=== PATIENT | male | born 1960 | race Caucasian/White ===

== ENCOUNTER 2020-12-17 09:41 | Inpatient (IN) ==
[2020-12-17] MEDS ORDERED: ceFAZolin 2 GM in DEXTROSE 5% IN WATER 50 ML IV SCH (11:00)
[2020-12-17 11:52] LABS: Amphetamine Screen,Urine Suspect positive; Barbiturate Screen,Urine None detected; Benzodiazepines Screen,Urine None detected; Cannabinoid Screen,Urine Suspect Positive; Cocaine Screen,Urine None detected; Opiate Screen,Urine Suspect Positive; Oxycodone, Urine Screen None detected; Phencyclidine Screen,Urine None detected
--- NOTE | 2020-12-17 13:36 | XRay Report ---
INDICATION: pre-op TECHNIQUE: AP portable upright chest x-ray COMPARISON: None FINDINGS: Lungs:Linear density at both lung bases consistent with atelectasis or scarring. Mid and upper lungs are negative. Heart, vascular:No significant cardiomegaly. Pulmonary vascularity is normal. No pulmonary edema or pulmonary congestion Mediastinum, saeid:No mediastinal widening. No hilar mass Pleura:No pleural fluid. No pleural-based mass or calcification Skeletal:Negative. IMPRESSION: 1. Mild bibasilar atelectasis or scarring 2. Otherwise negative AP chest x-ray Interpreted and Authenticated by: Dontae Gresham 12/17/20
[2020-12-17] MEDS ORDERED: VANCOMYCIN 1,500 MG in 0.9 % SODIUM CHLORIDE 500 ML IV SCH (14:30)
[2020-12-17] MEDS ORDERED: PHENYLEPHRINE 10 MG/ML VIAL ONE (14:36)
[2020-12-17] MEDS ORDERED: fentaNYL 100 MCG/2 ML VIAL IV ONE (14:36)
[2020-12-17] MEDS ORDERED: LIDOCAINE HCL/PF 100 MG/5 ML SYRINGE IV ONE (14:36)
[2020-12-17] MEDS ORDERED: KETAMINE 100 MG/ML ML ONE (14:36)
[2020-12-17] MEDS ORDERED: GLYCOPYRROLATE 0.2 MG/ML VIAL IV ONE (14:36)
[2020-12-17] MEDS ORDERED: DEXAMETHASONE 10 MG/ML VIAL ONE (14:36)
[2020-12-17] MEDS ORDERED: PROPOFOL 200 MG/20 ML VIAL IV ONE (14:36)
[2020-12-17] MEDS ORDERED: ROPIVACAINE HCL/PF 30 ML VIAL IJ ONE (14:36)
[2020-12-17] MEDS ORDERED: ONDANSETRON 4 MG/2 ML VIAL ONE (14:36)
[2020-12-17] MEDS ORDERED: HYDROmorphone 1 MG/ML SYRINGE ONE (14:36)
[2020-12-17] MEDS ORDERED: MIDAZOLAM 5 MG/5 ML VIAL ONE (14:36)
[2020-12-17] MEDS ORDERED: ONDANSETRON 4 MG/2 ML VIAL IV PRN ×2 (14:46→16:26)
[2020-12-17] MEDS ORDERED: morphine 4 MG/ML VIAL IV PRN (14:46)
[2020-12-17] MEDS ORDERED: ONDANSETRON 4 MG ODT TABLET SL PRN ×2 (14:46→16:26)
--- NOTE | 2020-12-17 14:46 | Brief Operative Note ---
Brief Operative Note Date of procedure: 12/17/20 Pre-op diagnosis: Right septic wrist Post-op diagnosis: same Procedure: R wrist arthrotomy, and irrigation and debridement Grafts/Implants: No Anesthesia: GETA Findings: Purulent infection in wrist joint itself Surgeon: Devante Smith Estimated blood loss (cc): 50 Specimens Removed/Pathology: other (Culture sent to pathology) Condition: stable Disposition: PACU
--- NOTE | 2020-12-17 14:50 | Discharge Plan ---
Discharge Plan Patient/Caregiver Discharge Instructions Activity: non-weight bearing Diet: Regular Diet Activity Restrictions/Additional Instructions: Keep wrist immobilized until follow up Prescriptions: New oxycodone-acetaminophen 5-325 mg Tablet 1 - 2 tab PO Q4HP PRN (Reason: Per Pain Protocol) Qty: 50 RF: 0 Continued salmeterol 50 mcg/dose blister with device 1 inh INHALATION BID Qty: 1 RF: 1 gabapentin 300 mg capsule 300 mg PO TID Qty: 90 RF: 5 bupropion HCl 300 mg tablet extended release 24 hr 300 mg PO QAM Qty: 90 RF: 1 meloxicam 15 mg tablet 15 mg PO QDAY Qty: 30 RF: 2 methocarbamol 750 mg tablet 750 mg PO TID Qty: 90 RF: 1 cyclobenzaprine 10 MG tablet 10 mg PO TID Qty: 30 RF: 0 sulfamethoxazole-trimethoprim [Bactrim DS] 800-160 mg tablet 1 tab PO BID Qty: 20 RF: 0 Follow Up Plan Follow up with: Devante Smith MD [Physician] - 01/01/21 3:40 pm Patient Disposition: Home, Self-Care Discharge Orders: Discharge Order (Routine); Ordered 12/17/20 Ordered By: Devante Smith
[2020-12-17] MEDS ORDERED: METOPROLOL TARTRATE 5 MG/5 ML VIAL IV PRN (15:34)
[2020-12-17] MEDS ORDERED: FLUMAZENIL 0.1 MG/ML ML IV PRN (15:34)
[2020-12-17] MEDS ORDERED: METHOCARBAMOL 1,000 MG/10 ML VIAL IV PRN (15:34)
[2020-12-17] MEDS ORDERED: ACETAMINOPHEN 1,000 MG/100 ML BAG IV ONE (15:34)
[2020-12-17] MEDS ORDERED: fentaNYL 100 MCG/2 ML VIAL IV PRN (15:34)
[2020-12-17] MEDS ORDERED: LABETALOL 5 MG/ML ML IV PRN (15:34)
[2020-12-17] MEDS ORDERED: IPRATROPIUM/ALBUTEROL 3 ML AMPUL.NEB NEB PRN (15:34)
[2020-12-17] MEDS ORDERED: LACTATED RINGERS 250 ML IV PRN (15:34)
[2020-12-17] MEDS ORDERED: LACTATED RINGERS 1,000 ML IV SCH (15:45)
[2020-12-17] MEDS ORDERED: BACITRACIN 50,000 UNIT VIAL IR ONE (15:56)
--- NOTE | 2020-12-17 16:22 | Operative Note ---
Operative Note Operative Note: Pre-operative diagnosis: Right wrist septic joint Postoperative diagnosis: Same Procedure: Open wrist arthrotomy, irrigation debridement Implants: None Findings: Significant quantity of purulent discharge when wrist capsule opened Complications: Nil Estimated Blood loss: 50 cc Assist: [facility] at [facility] nursing DOS: December 17, 2020 Clinical note: The patient continues to suffer from the above mentioned diagnosis. The presented to the hospital for 3 to 4 days ago. There was concern for superficial abscess in the dorsum of the wrist versus septic wrist. Patient was given a IV antibiotics. He returned to the emergency department yesterday with worsening infection in his wrist. Ultrasound now showed the infection had progressed into the joint. Surgical irrigation debridement was advised. H&P: The patient was met outside the operating room and symptoms were reviewed and a physical exam performed. The patient demonstrated ongoing symptoms and signs as previously discussed. Risk versus benefits of the procedure were again discussed. Patient wished to proceed with the surgery aware and understanding of these risks. The operative site was marked. The patient was brought in the operating room and prepped and draped in the usual fashion. A tourniquet was applied and inflated and then deflated at the end of the case. We began by making a longitudinal dorsal incision approximately 10 cm long. The skin flaps were raised which showed very erythematous indurated skin. Flap was created over the extensor retinaculum. The extensor tendons were released partially from the extensor retinaculum in the second third fourth and fifth compartments. This enabled us to mobilize the extensor tendons and dissect down onto the capsule. A ligament sparing capsulotomy was performed starting from the radial styloid standing to the triquetrum proximally and then back to the midcarpal joint. Soon as the wrist capsule was entered a significant quantity of purulent fluid was discharged. The fluid and some synovial tissue was sent for cultures. The wrist was then irrigated with 6 L of bacitracin filled fluid with pulse lavage. Upon completion the wound and wrist were further explored but no further pockets of pus were encountered. The capsule was closed with a 0 Monocryl. The extensor retinaculum was loosely tacked back together. The skin was closed with 3-0 nylon suture. Sterile dressing was applied. A volar slab was applied over top of that. We will keep this on until follow-up or if there are signs of discharge or bleeding. I have consulted the hospitalist who in turn asked me to admit the patient for short observation, and he will see the patient and speak with infectious disease. He should likely remain on IV vancomycin for his MRSA.
[2020-12-17] MEDS ORDERED: MAGNESIUM SULFATE 2 GM/50 ML BAG IV PRN (16:26)
[2020-12-17] MEDS ORDERED: POTASSIUM CHLORIDE 20 MEQ PACKET PO PRN (16:26)
[2020-12-17] MEDS ORDERED: HYDROcodone/APAP 5/325MG TABLET PO PRN (16:26)
[2020-12-17] MEDS ORDERED: POTASSIUM CHLORIDE 40 MEQ in DEXTROSE 5% IN WATER 500 ML IV PRN (16:26)
[2020-12-17] MEDS ORDERED: ACETAMINOPHEN 325 MG TABLET PO PRN (16:26)
[2020-12-17] MEDS ORDERED: hydrALAZINE 20 MG/ML VIAL IV PRN (16:26)
[2020-12-17] MEDS ORDERED: BISACODYL 10 MG SUPP.RECT PR PRN (16:26)
[2020-12-17] MEDS ORDERED: POLYETHYLENE GLYCOL 3350 17 GM PACKET PO PRN (16:26)
[2020-12-17] MEDS ORDERED: ACETAMINOPHEN 650 MG/65 ML BAG IV PRN (16:26)
[2020-12-17] MEDS ORDERED: VANCOMYCIN PER PHARMACY IV SCH (16:30)
[2020-12-17] MEDS ORDERED: cefTRIAXone 2 GM in DEXTROSE 5% IN WATER 50 ML IV SCH (16:30)
--- NOTE | 2020-12-17 16:31 | Internal Med History&Physical ---
HPI History of Present Illness Patient information: Note initiated : 12/17/20 at 4:31 pm Service Date, if different from initiated Date: [] Patient: Armand Nieto a 60 y/o M admitted on for Right Wrist I&D. Chief Complaint: Right wrist swelling and pain History of present illness: Mr. Nieto is a 60 year old M with a history of DM type II/chronic pain/neuropathy and anxiety and history of IV drug use who presented to the ER with 5 days onset of increasing right wrist swelling pain after he woke up. Symptoms progressed and with concerns of infection was evaluated in the ER. Work-up was consistent with septic arthritis/ Joint was aspirated on the fourth and patient was started on Bactrim. Cultures yielded MRSA. Patient was scheduled for irrigation debridement and open wrist arthrotomy by orthopedics today. Postoperatively hospitalist service was consulted for evaluation/antibiotic management given a complex medical history/history of IV drug use precluding use of indwelling line for outpatient IV antibiotics. Also blood cultures from [facility] gram-positive cocci. At the time of my evaluation patient is alert and oriented. Complains of generalized body ache/neck pain but denies rash. Endorses using IV amphetamine. Lives behind her daughters home. Endorses to fatigue/loss of appetite/sweats Review of systems 10 point review system was performed and is negative except for 1 discussed above PFSH PFSH All Active Problems (Updated 12/16/20 @ 21:27 by Sofya Humphrey PA-C) Methamphetamine abuse (Acute) Chronic back pain (Acute) Sinusitis (Acute) Acute exacerbation of chronic obstructive airways disease (Acute) Cervical radiculopathy (Acute) Blunt chest trauma (Acute) Cellulitis (Acute) Active intravenous drug use (Acute) Abscess of skin or subcutaneous tissue (Acute) Encounter for wound re-check (Acute) Abscess of hand (Acute) Cellulitis and abscess of hand (Acute) Septic joint of right wrist (Acute) Disease of spinal cord (Chronic) Neurogenic claudication due to lumbar spinal stenosis (Chronic) 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) Degeneration of intervertebral disc of lumbar region (Chronic) Degeneration of intervertebral disc of cervical region (Chronic) Seizure (Chronic) Migraine (Chronic) Excessive daytime sleepiness (Chronic) Heartburn (Chronic) Indigestion (Chronic) Rh incompatibility (Chronic) Anxiety (Chronic) Depression (Chronic) Muscle pain (Chronic) Lung trouble (Chronic) Asthma (Chronic) Joint pain (Chronic) OA (osteoarthritis) (Chronic) Arthritis (Chronic) Medical History (Updated 12/16/20 @ 21:27 by Sofya Humphrey PA-C) Accident (Resolved) logging accident-broke back Acute exacerbation of chronic obstructive airways disease (Acute) Anxiety (Chronic) Arthritis (Chronic) Asthma (Chronic) Chronic back pain (Acute) Degeneration of intervertebral disc of cervical region (Chronic) Degeneration of intervertebral disc of lumbar region (Chronic) 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) Depression (Chronic) Disease of spinal cord (Chronic) Excessive daytime sleepiness (Chronic) Heartburn (Chronic) Indigestion (Chronic) Joint pain (Chronic) Lung trouble (Chronic) Methamphetamine abuse (Acute) Migraine (Chronic) Muscle pain (Chronic) Neurogenic claudication due to lumbar spinal stenosis (Chronic) OA (osteoarthritis) (Chronic) Rh incompatibility (Chronic) as baby Seizure (Chronic) when coming off antidepressant Sinusitis (Acute) Surgical History History of back surgery (Resolved) 2007 Family History Unknown Arthritis All Mother Malignant neoplasm of breast Diabetes mellitus Essential hypertension Myocardial Infarction Grandmother-Maternal Malignant neoplasm of breast Brother Diabetes mellitus Essential hypertension Sisters Diabetes mellitus 2 sisters Essential hypertension 2 sisters Myocardial Infarction 2 sisters Father Essential hypertension Cerebrovascular accident Social History (Updated 10/31/18 @ 09:04 by Zac Webster PA-C) marital status: smoking status: Current every day smoker alcohol intake frequency: does not drink substance use type: marijuana MEDS/ALLERGIES Home Medications and Allergies Home Medications Medication Instructions Recorded Confirmed Type bupropion HCl 300 mg 24 hr tablet, 300 mg PO QAM #90 tab 05/09/18 12/17/20 Rx extended release meloxicam 15 mg tablet 15 mg PO QDAY #30 tab 05/09/18 12/17/20 Rx methocarbamol 750 mg tablet 750 mg PO TID #90 tab 09/23/18 12/17/20 Rx salmeterol 50 mcg/dose blister 1 inh INHALATION BID #1 each 10/05/18 12/17/20 Rx powder for inhalation gabapentin 300 mg capsule 300 mg PO TID #90 cap 10/13/18 12/17/20 Rx cyclobenzaprine 10 mg PO TID #30 tab 04/17/20 12/17/20 Rx sulfamethoxazole-trimethoprim 1 tab PO BID #20 tab 12/13/20 12/17/20 Rx [Bactrim DS] oxycodone-acetaminophen 1 - 2 tab PO Q4HP PRN #50 tab 12/17/20 Rx Allergies Allergy/AdvReac Type Severity Reaction Status Date / Time hydrocodone AdvReac Mild Gastrointestinal Verified 12/17/20 10:43 Upset EXAM Constitutional Vitals: Temp Pulse Resp BP Pulse Ox 97.3 F 74 24 H 118/81 100 12/17/20 16:25 12/17/20 16:25 12/17/20 16:25 12/17/20 16:25 12/17/20 16:25 Anxious, 10 and frail looking Head atraumatic Oral cavity dry No ear nose discharge Eye movement symmetrical Neck supple no lymphadenopathy S1-S2 tachycardia Nonlabored breathing Nondistended nontender abdomen Lower extremity no cyanosis clubbing or joint swelling Skin no suspicious lesion Psych anxious but alert cooperative Neuro normal higher function DATA Data Completed and Pending Labs: Labs from last 24 hours 12/17/20 10:56 Urine Opiates Screen Suspect positive A Ur Opiates Confirm Not Reportable Ur Oxycodone Screen None detected Urine Methadone Screen None detected Ur Methadone Confirm Not Reportable Ur Barbiturates Screen None detected Ur Barbiturate Confirm Not Reportable Ur Phencyclidine Scrn None detected Urine PCP Confirm Not Reportable Ur Amphetamines Screen Suspect positive A U Amphetamines Confirm Not Reportable U Benzodiazepines Scrn None detected U Benzodiazepine Confm Not Reportable Urine Cocaine Screen None detected Urine Cocaine Confirm Not Reportable U Cannabinoids Confirm Not Reportable U Marijuana (THC) Screen Suspect positive A A/P Narrative A/P Narrative: * Right wrist septic arthritis status post joint debridement/irrigation. MRSA on cultures. On IV vancomycin. Case discussed with ID. * Gram-positive bacteremia. Surveillance cultures. Echocardiogram, further source evaluation. Likely IV drug use * History of injection drug use * DM type II-CC diet * Anxiety disorder continue bupropion * Neuropathy continue gabapentin * Full code * Prophylaxis Heparin Plan * Inpatient admission * Antibiotic coverage * Surveillance cultures * Echocardiogram * IV drug cessation counseling * CC diet * Therapies as tolerated * Discharge planning Time Spent With Patient Time: Total time spent is greater than 50% in coordination of care (as documented) at patient's floor/unit and/or counseling patient:
[2020-12-17] MEDS: LACTATED RINGERS 1,000 ML IV SCH (18:11)
[2020-12-17] MEDS: CYCLOBENZAPRINE 10 MG TABLET PO SCH ×2 (18:24→21:37)
[2020-12-17] MEDS: cefTRIAXone 2 GM in DEXTROSE 5% IN WATER 50 ML IV SCH (18:30)
[2020-12-17] MEDS ORDERED: VANCOMYCIN 1,000 MG in 0.9 % SODIUM CHLORIDE 250 ML IV SCH (20:00)
[2020-12-17] MEDS: HEPARIN 5,000 UNIT/ML VIAL SQ SCH (21:36)
[2020-12-17] MEDS: SENNOSIDES/DOCUSATE SODIUM 1 TAB TABLET PO SCH (21:36)
[2020-12-17] MEDS: METHOCARBAMOL 750 MG TABLET PO SCH (21:37)
[2020-12-17] MEDS: GABAPENTIN 300 MG CAPSULE PO SCH (21:37)
[2020-12-17] MEDS: DOCUSATE SODIUM 100 MG CAPSULE PO SCH (21:42)
[2020-12-17] MEDS: MELATONIN 3 MG TABLET PO PRN (21:51)
[2020-12-17] MEDS: oxyCODONE/APAP 5/325MG TABLET PO PRN (21:51)
[2020-12-17] MEDS ORDERED: 0.9 % SODIUM CHLORIDE 10 ML SYRINGE IV SCH (22:00)
[2020-12-17] MEDS: SALMETEROL XINAFOATE 1 PUFF INHALER INH SCH (22:03)
[2020-12-17] MEDS: 0.9 % SODIUM CHLORIDE 10 ML SYRINGE IV SCH (22:03)
[2020-12-18] MEDS: 0.9 % SODIUM CHLORIDE 10 ML SYRINGE IV SCH ×3 (05:59→21:12)
[2020-12-18 06:51] LABS: Basophils # (Auto) 0.02 K/mcL (0.00-0.20); Basophils % (Auto) 0.1 % (0.0-2.0); Eosinophils # (Auto) 0 K/mcL (0.00-0.70); Eosinophils % (Auto) 0 % (0.0-7.0); Hematocrit 34.7 % (41.0-55.0); Hemoglobin 11.2 g/dL (13.5-16.5); Lymphocytes # (Auto) 1.03 K/mcL (1.50-4.80); Lymphocytes % (Auto) 7.2 % (15.0-49.0); Mean Cell Volume 80.1 fL (80.0-100.0); Mean Corpuscular HGB Conc 32.3 g/dL (31.0-36.0); Mean Platelet Volume 8.7 fL (7.4-10.4); Monocytes # (Auto) 0.54 K/mcL (0.10-0.90); Monocytes % (Auto) 3.8 % (1.0-12.0); Neutrophils % (Auto) 88.9 % (38.0-78.0); Platelet Count 488 K/mcL (140-440); RBC 4.33 M/mcL (4.50-5.90); Red Cell Distribution Width 15.5 % (11.5-14.5); WBC 14.2 K/mcL (4.5-11.0)
[2020-12-18 07:26] LABS: ALT/SGPT 59 U/L (<40); AST/SGOT 58 U/L (<40); Albumin 3.1 gm/dL (3.2-5.2); Albumin/Globulin Ratio 0.7 (1.0-2.3); Alkaline Phosphatase 71 U/L (39-117); Bilirubin,Direct < 0.2 mg/dL (<0.3); Bilirubin,Total 0.3 mg/dL (0.1-1.0); Blood Urea Nitrogen 17 mg/dL (6-20); Calcium 8.7 mg/dL (8.6-10.4); Carbon Dioxide 21 mmol/L (22-30); Chloride 103 mmol/L (96-108); Globulin 4.2 gm/dL (2.2-3.7); Glomerular Filtration Rate 102; Glucose 148 mg/dL (70-105); Lactate Dehydrogenase 175 U/L (135-225); Phosphorous 4.1 mg/dL (2.5-4.5); Triglycerides 65 mg/dL (<150); Uric Acid 3.2 mg/dL (2.5-8.0)
[2020-12-18] MEDS ORDERED: buPROPion 300 MG TAB.XL.24H PO SCH (09:00)
[2020-12-18] MEDS ORDERED: DAPTOmycin 500 MG VIAL IV ONE (09:00)
[2020-12-18] MEDS: cefTRIAXone 2 GM in DEXTROSE 5% IN WATER 50 ML IV SCH (09:11)
[2020-12-18] MEDS: DOCUSATE SODIUM 100 MG CAPSULE PO SCH ×2 (09:15→21:09)
[2020-12-18] MEDS: CYCLOBENZAPRINE 10 MG TABLET PO SCH ×3 (09:15→21:09)
[2020-12-18] MEDS: METHOCARBAMOL 750 MG TABLET PO SCH ×3 (09:16→21:09)
[2020-12-18] MEDS: MELOXICAM 7.5 MG TABLET PO SCH (09:16)
[2020-12-18] MEDS: MULTIVIT,THER IRON,CA,FA & MIN 1 TABLET PO SCH (09:16)
[2020-12-18] MEDS: GABAPENTIN 300 MG CAPSULE PO SCH ×3 (09:16→21:09)
[2020-12-18] MEDS: HEPARIN 5,000 UNIT/ML VIAL SQ SCH ×2 (09:20→21:09)
[2020-12-18] MEDS: SALMETEROL XINAFOATE 1 PUFF INHALER INH SCH ×2 (09:24→21:12)
[2020-12-18] MEDS: buPROPion 150 MG TAB.XL.24H PO SCH (09:27)
[2020-12-18] MEDS: LACTATED RINGERS 1,000 ML IV SCH (09:50)
--- NOTE | 2020-12-18 16:09 | Internal Med Progress Note ---
SUBJECTIVE Subjective Patient information: Note initiated : 12/18/20 at 4:05 pm Service Date, if different from initiated Date: [] Patient: Armand Nieto a 60 y/o M admitted on 12/17/20 for Right Wrist I&D. Chief Complaint: [] Pertinent ROS: History of present illness: Mr. Nieto is a 60 year old M with a history of DM type II/chronic pain/neuropathy and anxiety and history of IV drug use who presented to the ER with 5 days onset of increasing right wrist swelling pain after he woke up. Symptoms progressed and with concerns of infection was evaluated in the ER. Work-up was consistent with septic arthritis/ Joint was aspirated on the fourth and patient was started on Bactrim. Cultures yielded MRSA. Patient was scheduled for irrigation debridement and open wrist arthrotomy by orthopedics today. Postoperatively hospitalist service was con sulted for evaluation/antibiotic management given a complex medical history/history of IV drug use precluding use of indwelling line for outpatient IV antibiotics. Also blood cultures from [facility] gram-positive cocci. At the time of my evaluation patient is alert and oriented. Complains of gener alized body ache/neck pain but denies rash. Endorses using IV amphetamine. Lives behind her daughters home. Endorses to fatigue/loss of appetite/sweats 12/18-patient currently on vancomycin. White count at 14,000. Staph aureus on blood culture from 8. Surveillance cultures pending. Echo pending. Continuing IV daptomycin. Will transition to 1200 mg oritavancin every 10 days on discharge for total of 30 days once bacteremia resolves and sepsis improved. LFTs elevated, CRP 14.4, UA positive for amphetamine/marijuana/opiates, tolerating diet Constitutional Vitals: Vital Signs Temp Pulse Resp BP Pulse Ox 98.6 F 76 18 106/69 97 12/18/20 11:57 12/18/20 12:15 12/18/20 11:57 12/18/20 11:57 12/18/20 11:57 Period Temp Pulse Resp BP Sys/Correa Pulse Ox Last 24 Hr 97.3 F-98.6 F 62-85 16-24 95-130/60-84 94-100 Intake and Output 12/18/20 12/18/20 12/18/20 05:59 13:59 21:59 Intake Total 275 1253 Output Total 550 1000 Balance -275 253 Weight 74.162 kg Patient Weight 12/19/20 05:59 Weight 74.162 kg resting comfortably Nonlabored breathing Right wrist postsurgical dressing Intake & Output: Intake & Output 12/18/20 12/18/20 12/18/20 05:59 13:59 21:59 Intake Total 275 1253 Output Total 550 1000 Balance -275 253 Weight 74.162 kg Intake: IV 833 Lactated Ringers 1,000 ml @ 50 783 mls/hr IV .Q20H [facility] Rx#: [id number] Rocephin 2 gm In Dextrose 5% in 50 Water 50 ml @ 100 mls/hr IV Q24H [facility]LY Rx#:[id number] Oral 275 420 Output: Void Amount 550 1000 Other: Meal Lunch Percent of Meal Consumed 25% Urine Appearance Clear Urine Color Bright Yellow Urine Odor Strong # Voids 1 OBJ DATA Labs CBC & Chem 7: 12/18/20 05:20 12/18/20 05:20 Labs: Abnormal Lab Results 12/18/20 12/18/20 12/18/20 09:27 05:20 05:20 WBC 14.2 H RBC 4.33 L Hgb 11.2 L Hct 34.7 L MCH 25.9 L RDW 15.5 H Plt Count 488 H Neut % (Auto) 88.9 H Lymph % (Auto) 7.2 L Lymph # (Auto) 1.03 L Absolute Neutrophils 12.64 H ESR 73 H Carbon Dioxide 21 L Glucose 148 H AST 58 H ALT 59 H C-Reactive Protein 14.40 H Albumin 3.1 L Globulin 4.2 H Albumin/Globulin Ratio 0.7 L Urine Opiates Screen Ur Amphetamines Screen U Marijuana (THC) Screen 12/17/20 12/17/20 16:58 10:56 WBC RBC Hgb Hct MCH RDW Plt Count Neut % (Auto) Lymph % (Auto) Lymph # (Auto) Absolute Neutrophils ESR Carbon Dioxide Glucose AST ALT C-Reactive Protein 14.50 H Albumin Globulin Albumin/Globulin Ratio Urine Opiates Screen Suspect positive A Ur Amphetamines Screen Suspect positive A U Marijuana (THC) Screen Suspect positive A Meds: Medications Acetaminophen (Tylenol) 650 mg PO Q4-6HP PRN; Protocol PRN Reason: Per Pain Protocol/Fever > 101 Hydrocodone Bitart/Acetaminophen ([place] 5/325mg) 1 - 2 tab PO Q4HP PRN; Protocol PRN Reason: Per Pain Protocol Last Admin: 12/18/20 07:25 Dose: 1 tab Documented by: Bisacodyl (Dulcolax) 10 mg IN Q2-3DAYS PRN PRN Reason: Constipation Bupropion HCl (Wellbutrin Xl) 300 mg PO DAILY [facility] Last Admin: 12/18/20 09:27 Dose: 300 mg Documented by: Cyclobenzaprine HCl (Flexeril) 10 mg PO TID [facility] Last Admin: 12/18/20 15:20 Dose: 10 mg Documented by: Daptomycin (Cubicin) 500 mg IV Q24H [facility] Docusate Sodium (Colace) 100 mg PO BID [facility] Last Admin: 12/18/20 09:15 Dose: Not Given Documented by: Gabapentin (Neurontin) 300 mg PO TID [facility] Last Admin: 12/18/20 15:20 Dose: 300 mg Documented by: Heparin Sodium (Porcine) (Heparin) 5,000 unit SQ Q12 [facility] Last Admin: 12/18/20 09:20 Dose: 5,000 unit Documented by: Hydralazine HCl (Apresoline) 10 mg IV Q4-6HP PRN PRN Reason: Hypertension Lactated Ringer's (Lactated Ringers) 1,000 mls @ 50 mls/hr IV .Q20H [facility] Last Admin: 12/18/20 09:50 Dose: 50 mls/hr Documented by: Potassium Chloride 40 meq/ (Dextrose) 520 mls @ 130 mls/hr IV UD PRN PRN Reason: K+ = or < 3.5 Acetaminophen (Ofirmev) 650 mg in 65 mls @ 130 mls/hr IV Q6HP PRN; Protocol PRN Reason: Per Pain Protocol/Fever > 101 Magnesium Sulfate (Magnesium Sulfate) 2 gm in 50 mls @ 50 mls/hr IV UD PRN PRN Reason: MG = or < 1.7 Ceftriaxone Sodium 2 gm/ (Dextrose) 50 mls @ 100 mls/hr IV Q24H [facility]; Protocol Last Infusion: 12/18/20 09:45 Dose: Infused Documented by: Iron Carb/Multivit/[place]/Folic Acid (Multivitamin W/Minerals) 1 tab PO DAILY [facility] Last Admin: 12/18/20 09:16 Dose: 1 tab Documented by: Melatonin (Melatonin 3mg Tablet) 3 mg PO HSP PRN PRN Reason: Insomnia Last Admin: 12/17/20 21:51 Dose: 3 mg Documented by: Meloxicam (Mobic) 15 mg PO DAILY [facility] Last Admin: 12/18/20 09:16 Dose: 15 mg Documented by: Methocarbamol (Robaxin) 750 mg PO TID [facility] Last Admin: 12/18/20 15:20 Dose: 750 mg Documented by: Morphine Sulfate (Morphine) 0 mg IV Q1HP PRN; Protocol PRN Reason: PAIN LEVEL > 6 Ondansetron HCl (Zofran Odt) 4 mg SL Q4-6HP PRN; Protocol PRN Reason: Nausea And Vomiting Ondansetron HCl (Zofran) 4 mg IV Q4-6HP PRN; Protocol PRN Reason: Nausea And Vomiting Oxycodone/Acetaminophen (Percocet 5-325 Mg) 0 tab PO Q4HP PRN; Protocol PRN Reason: Per Pain Protocol Last Admin: 12/17/20 21:51 Dose: 1 tab Documented by: Polyethylene Glycol (Miralax) 17 gm PO DAILYP PRN PRN Reason: Constipation Potassium Chloride (Klor-Con) 40 meq PO DAILYP PRN PRN Reason: K+ < 3.5 Salmeterol Xinafoate (Serevent) 1 puff INH BID [facility] Last Admin: 12/18/20 09:24 Dose: Not Given Documented by: Senna/Docusate Sodium (Senna Plus Tablet) 1 tab PO HS [facility] Last Admin: 12/17/20 21:36 Dose: 1 tab Documented by: Sodium Chloride (Saline Flush) 10 ml IV Q8 [facility] Last Admin: 12/18/20 14:35 Dose: Not Given Documented by: A/P Narrative A/P Narrative: * Right wrist septic arthritis status post joint debridement/irrigation. MRSA on initial cultures. On IV daptomycin will be transitioned to oritavancin 200 mg every 10 days for a total of 30 days * Staph aureus bacteremia. Surveillance cultures pending. Echocardiogram results awaited, Likely IV drug use * Sepsis secondary above. White count 14,000. As per guidelines * History of injection drug use-counseled for cessation * DM type II-CC diet * Anxiety disorder continue bupropion * Neuropathy continue gabapentin * Full code * Prophylaxis Heparin Plan * Continue IV daptomycin * Await surveillance cultures/echocardiogram results rule out endocarditis * CC diet * Discharge planning with outpatient oritavancin 1200 mg every 10 days Time Spent With Patient Time: Total time spent is greater than 50% in coordination of care (as docu mented) at patient's floor/unit and/or counseling patient: QUALITY VTE Deep Vein Thrombosis/Pulmonary Embolism Present on Admission: No
[2020-12-18] MEDS: oxyCODONE/APAP 5/325MG TABLET PO PRN (19:14)
[2020-12-18] MEDS: SENNOSIDES/DOCUSATE SODIUM 1 TAB TABLET PO SCH (21:09)
[2020-12-18] MEDS: MELATONIN 3 MG TABLET PO PRN (21:09)
[2020-12-19] MEDS: oxyCODONE/APAP 5/325MG TABLET PO PRN (03:02)
[2020-12-19] MEDS: 0.9 % SODIUM CHLORIDE 10 ML SYRINGE IV SCH ×2 (06:07→12:55)
[2020-12-19 06:53] LABS: Basophils # (Auto) 0.04 K/mcL (0.00-0.20); Basophils % (Auto) 0.3 % (0.0-2.0); Eosinophils # (Auto) 0.16 K/mcL (0.00-0.70); Eosinophils % (Auto) 1.4 % (0.0-7.0); Hematocrit 35.3 % (41.0-55.0); Hemoglobin 10.6 g/dL (13.5-16.5); Lymphocytes # (Auto) 2.53 K/mcL (1.50-4.80); Lymphocytes % (Auto) 21.8 % (15.0-49.0); Mean Cell Volume 86.1 fL (80.0-100.0); Mean Platelet Volume 8.9 fL (7.4-10.4); Monocytes % (Auto) 7.7 % (1.0-12.0); Neutrophils % (Auto) 68.8 % (38.0-78.0); Platelet Count 457 K/mcL (140-440); Red Cell Distribution Width 15.9 % (11.5-14.5); WBC 11.6 K/mcL (4.5-11.0)
[2020-12-19 07:30] LABS: ALT/SGPT 52 U/L (<40); AST/SGOT 39 U/L (<40); Albumin 2.6 gm/dL (3.2-5.2); Albumin/Globulin Ratio 0.6 (1.0-2.3); Alkaline Phosphatase 62 U/L (39-117); Bilirubin,Direct < 0.2 mg/dL (<0.3); Bilirubin,Total 0.2 mg/dL (0.1-1.0); Blood Urea Nitrogen 21 mg/dL (6-20); Calcium 8.2 mg/dL (8.6-10.4); Carbon Dioxide 19 mmol/L (22-30); Chloride 104 mmol/L (96-108); Globulin 4.1 gm/dL (2.2-3.7); Glomerular Filtration Rate 102; Glucose 107 mg/dL (70-105); Lactate Dehydrogenase 143 U/L (135-225); Phosphorous 3.6 mg/dL (2.5-4.5); Triglycerides 102 mg/dL (<150); Uric Acid 3.5 mg/dL (2.5-8.0)
[2020-12-19] MEDS: MULTIVIT,THER IRON,CA,FA & MIN 1 TABLET PO SCH (08:21)
[2020-12-19] MEDS: cefTRIAXone 2 GM in DEXTROSE 5% IN WATER 50 ML IV SCH (08:21)
[2020-12-19] MEDS: HEPARIN 5,000 UNIT/ML VIAL SQ SCH (08:21)
[2020-12-19] MEDS: DOCUSATE SODIUM 100 MG CAPSULE PO SCH (08:21)
[2020-12-19] MEDS: MELOXICAM 7.5 MG TABLET PO SCH (08:21)
[2020-12-19] MEDS: buPROPion 150 MG TAB.XL.24H PO SCH (08:21)
[2020-12-19] MEDS: METHOCARBAMOL 750 MG TABLET PO SCH (08:22)
[2020-12-19] MEDS: CYCLOBENZAPRINE 10 MG TABLET PO SCH (08:22)
[2020-12-19] MEDS: LACTATED RINGERS 1,000 ML IV SCH (08:25)
[2020-12-19] MEDS: GABAPENTIN 300 MG CAPSULE PO SCH (08:46)
[2020-12-19] MEDS ORDERED: DAPTOmycin 500 MG VIAL IV SCH (09:00)
--- NOTE | 2020-12-19 11:06 | Discharge Summary ---
Discharge Provider Provider Patient information: Note initiated : 12/19/20 at 11:02 am Service Date, if different from initiated Date: [] Patient: Armand Nieto 60 y/o M admitted on 12/17/20 for Right Wrist I&D. Discharge diagnosis * Right wrist septic arthritis status post joint debridement/irrigation. MRSA on operative cultures. Managed on IV daptomycin. Transition to oritavancin 1200 mg every 10 days for 3 doses , patient will undergo infusion at [facility] once every 10 days. * Staph aureus bacteremia. Coag negative on cultures. Likely contaminant. Surveillance cultures negative. * Sepsis secondary above. White count normalized. * History of injection drug use-counseled for cessation * DM type II-CC diet * Anxiety disorder continue home dose bupropion * Neuropathy continue gabapentin Brief hospital course History of present illness: Mr. Nieto is a 60 year old M with a history of DM type II/chronic pain/neuropathy and anxiety and history of IV drug use who presented to the ER with 5 days onset of increasing right wrist swelling pain after he woke up. Symptoms progressed and with concerns of infection was evaluated in the ER. Work-up was consistent with septic arthritis/ Joint was aspirated on the fourth and patient was started on Bactrim. Cultures yielded MRSA. Patient was scheduled for irrigation debridement and open wrist arthrotomy by orthopedics today. Postoperatively hospitalist service was consulted for evaluation/antibiotic management given a complex medical history/history of IV drug use precluding use of indwelling line for outpatient IV antibiotics. Also blood cultures from 8th grew gram-positive cocci. At the time of my evaluation patient is alert and oriented. Complains of generalized body ache/neck pain but denies rash. Endorses using IV amphetamine. Lives behind her daughters home. Endorses to fatigue/loss of appetite/sweats 12/18-patient currently on vancomycin. White count at 14,000. Staph aureus on blood culture from 8. Surveillance cultures pending. Echo pending. Continuing IV daptomycin. Will transition to 1200 mg oritavancin every 10 days on discharge for total of 30 days once bacteremia resolves and sepsis improved. LFTs elevated, CRP 14.4, UA positive for amphetamine/marijuana/opiates, tolerating diet 12/19-patient doing well. No overnight events. No concerns per staff. Postoperative dressing managed by orthopedics. Discharging home on oritavancin 1200 mg once every 10 days for duration of total 30 days(3 doses starting 12/[address] [facility] infusion center) patient counseled aggressively for IV drug use cessation Date of admission: 12/17/20 20:31 Discharge date: 12/19/20 Primary care physician: ABIGAIL Rodriguez Discharge Meds Discharge Medications Home Medications bupropion HCl 300 mg 24 hr tablet, extended release 300 mg PO QAM #90 tab 05/09/18 [Rx Confirmed 12/17/20 Last Taken 12/16/20] meloxicam 15 mg tablet 15 mg PO QDAY #30 tab 05/09/18 [Rx Confirmed 12/17/20 Last Taken 12/16/20] methocarbamol 750 mg tablet 750 mg PO TID #90 tab 09/23/18 [Rx Confirmed 12/17/20 Last Taken 12/16/20] salmeterol 50 mcg/dose blister powder for inhalation 1 inh INHALATION BID #1 each 10/05/18 [Rx Confirmed 12/17/20 Last Taken 12/17/20] gabapentin 300 mg capsule 300 mg PO TID #90 cap 10/13/18 [Rx Confirmed 12/17/20 Last Taken 12/16/20] cyclobenzaprine 10 mg PO TID #30 tab 04/17/20 [Rx Confirmed 12/17/20 Last Taken 12/16/20] sulfamethoxazole-trimethoprim [Bactrim DS] 1 tab PO BID #20 tab 12/13/20 [Rx Confirmed 12/17/20 Last Taken 12/16/20] oxycodone-acetaminophen 1 - 2 tab PO Q4HP PRN #50 tab 12/17/20 [Rx Last Taken Unknown] oritavancin 1,200 mg IV ONCE 30 Days 12/19/20 [Rx Last Taken Unknown] COURSE Hospital Course Hospital course: . Discharge diagnosis: Staff aureus septic arthritis Time Spent with Patient Time attestation: Total time spent providing and/or coordinating discharge services: EXAM Constitutional Vitals: Temp Pulse Resp BP Pulse Ox 98.6 F 80 16 110/71 95 12/19/20 07:12 12/19/20 08:00 12/19/20 07:12 12/19/20 07:12 12/19/20 07:12 Discharge Data Data Completed and Pending Labs on day of discharge: Labs from last 24 hours 12/19/20 12/19/20 12/19/20 07:58 05:50 05:50 WBC 11.6 H RBC 4.10 L Hgb 10.6 L Hct 35.3 L MCV 86.1 MCH 25.9 L MCHC 30.0 L RDW 15.9 H Plt Count 457 H MPV 8.9 Neut % (Auto) 68.8 Lymph % (Auto) 21.8 [place] % (Auto) 7.7 Eos % (Auto) 1.4 Baso % (Auto) 0.3 Lymph # (Auto) 2.53 [place] # (Auto) 0.90 Eos # (Auto) 0.16 Baso # (Auto) 0.04 Absolute Neutrophils 8.00 ESR Sodium 134 Potassium 4.0 Chloride 104 Carbon Dioxide 19 L Anion Gap 11.0 BUN 21 H Creatinine 0.7 GFR Calculation 102 Glucose 107 H Uric Acid 3.5 Calcium 8.2 L Phosphorus 3.6 Magnesium 2.4 Total Bilirubin 0.2 Direct Bilirubin < 0.2 GGT 23 AST 39 ALT 52 H Alkaline Phosphatase 62 Lactate Dehydrogenase 143 Total Protein 6.7 Albumin 2.6 L Globulin 4.1 H Albumin/Globulin Ratio 0.6 L Triglycerides 102 Vancomycin Trough < 4.0 L 12/18/20 09:27 WBC RBC Hgb Hct MCV MCH MCHC RDW Plt Count MPV Neut % (Auto) Lymph % (Auto) [place] % (Auto) Eos % (Auto) Baso % (Auto) Lymph # (Auto) [place] # (Auto) Eos # (Auto) Baso # (Auto) Absolute Neutrophils ESR 73 H Sodium Potassium Chloride Carbon Dioxide Anion Gap BUN Creatinine GFR Calculation Glucose Uric Acid Calcium Phosphorus Magnesium Total Bilirubin Direct Bilirubin GGT AST ALT Alkaline Phosphatase Lactate Dehydrogenase Total Protein Albumin Globulin Albumin/Globulin Ratio Triglycerides Vancomycin Trough Preliminary micro results at discharge 12/18/20 09:41 Blood Culture - Preliminary Blood 12/18/20 09:27 Blood Culture - Preliminary Blood 12/17/20 18:49 Blood Culture - Preliminary Blood 12/17/20 18:44 Blood Culture - Preliminary Blood 12/17/20 16:58 Gram Stain - Preliminary Wrist - Right Anaerobic Culture - Preliminary 12/17/20 16:58 Gram Stain - Preliminary Wrist - Right Wound Culture - Preliminary Staphylococcus aureus 12/17/20 15:33 Gram Stain - Preliminary Wrist - Right Anaerobic Culture - Preliminary 12/17/20 15:36 Gram Stain - Preliminary Wrist - Right Wound Culture - Preliminary Staphylococcus species Discharge Plan Patient/Caregiver Discharge Instructions Activity: non-weight bearing Diet: Regular Diet Activity Restrictions/Additional Instructions: Keep wrist immobilized until follow up [place] up with orthopedic in 5 to 7 days Continue with advanced fusion once every 10 days scheduled on 12/20, 12/29, 01/09 refrain from IVDU Prescriptions: New oxycodone-acetaminophen 5-325 mg Tablet 1 - 2 tab PO Q4HP PRN (Reason: Per Pain Protocol) Qty: 50 RF: 0 oritavancin 400 mg recon soln 1,200 mg IV ONCE 30 Days RF: 0 Continued salmeterol 50 mcg/dose blister with device 1 inh INHALATION BID Qty: 1 RF: 1 gabapentin 300 mg capsule 300 mg PO TID Qty: 90 RF: 5 bupropion HCl 300 mg tablet extended release 24 hr 300 mg PO QAM Qty: 90 RF: 1 meloxicam 15 mg tablet 15 mg PO QDAY Qty: 30 RF: 2 methocarbamol 750 mg tablet 750 mg PO TID Qty: 90 RF: 1 cyclobenzaprine 10 MG tablet 10 mg PO TID Qty: 30 RF: 0 sulfamethoxazole-trimethoprim [Bactrim DS] 800-160 mg tablet 1 tab PO BID Qty: 20 RF: 0 Follow Up Plan Follow up with: Devante Smith MD [Physician] - 01/01/21 3:40 pm Patient Disposition: Home, Self-Care Rehab Potential: Fair I certify that the patient requires SNF services: No Overall status at discharge: patient is progressing back to baseline Discharge Orders: Discharge Order (Routine); Ordered 12/19/20 Ordered By: Devante Smith QUALITY VTE Deep Vein Thrombosis/Pulmonary Embolism Present on Admission: No
[2020-12-19] MEDS: SALMETEROL XINAFOATE 1 PUFF INHALER INH SCH (12:23)
[2020-12-24 17:47] LABS: Cannabinoid Confirmation Positive
== END 2020-12-19 14:10 | disposition home or self-care (01) | DRG 854 ==
LOC: SUR 09:41 → MEDSUR 09:41
PROVIDERS: ADMIT Internal Medicine; ATTEND Internal Medicine